=== PATIENT | male | born 1970 | race Hispanic/Latino ===

== ENCOUNTER 2025-03-16 06:47 | Day surgery (SDC) | payer BC ==
[2025-03-16] VITALS (10 sets, daily range): BP systolic 100–124; BP diastolic 68–85; PULSE 60–75; RESP 14–16; TEMP 97.2–98.3
[~2025-03-16] VITALS: Ht 172.7 cm; Wt 124.7 kg
[~2025-03-16 06:47] MED LIST: ATOR10 PO; CARV3.12 PO; FOLI0.8C PO; METH2.5T6 PO; SACU1TAB7 PO
[2025-03-16] MEDS: 0.9%NACL 1000ML 1,000 ML IV ONE (07:35)
--- NOTE | 2025-03-16 09:50 | NUR ---
BOTH PT AND SPOUSE GIVEN VERBAL AND WRITTEN DISCHARGE INSTRUCTIONS IV REMOVED SITE ASYMPTOMATIC. PT TAKEN OUT VIA WHEELCHAIR SPOUSE DRIVING.
== END 2025-03-16 10:05 | disposition home or self-care (01) ==
LOC: ENDO 06:47 → DAH 06:47 → ENDO 10:05
PROVIDERS: ATTEND Internal Medicine
DX: Z12.11 Encounter for screening for malignant neoplasm of colon (principal); D12.4 Benign neoplasm of descending colon; R12 Heartburn; K21.00 Gastro-esophageal reflux disease with esophagitis, without bleeding; K57.30 Diverticulosis of large intestine without perforation or abscess without bleeding; I11.0 Hypertensive heart disease with heart failure; I50.9 Heart failure, unspecified; I25.10 Atherosclerotic heart disease of native coronary artery without angina pectoris; I25.2 Old myocardial infarction; M19.90 Unspecified osteoarthritis, unspecified site; R06.6 Hiccough; E66.01 Morbid (severe) obesity due to excess calories; K44.9 Diaphragmatic hernia without obstruction or gangrene; K31.89 Other diseases of stomach and duodenum; Z98.84 Bariatric surgery status; Z95.0 Presence of cardiac pacemaker; Z90.49 Acquired absence of other specified parts of digestive tract; Z68.39 Body mass index [BMI] 39.0-39.9, adult; Z95.5 Presence of coronary angioplasty implant and graft; Z79.899 Other long term (current) drug therapy
CPT/HCPCS: 45385; 43239; J7030; J2704 ×2; A4620; A4215; J3490